=== PATIENT | male | born 1995 | race Caucasian/White ===

== ENCOUNTER 2025-02-10 15:14 | Emergency (ER) | payer BC, OTHER ==
[2025-02-10 15:36] VITALS: RESP 20
--- NOTE | 2025-02-10 15:58 | ED ---
Extremity Problem HPI - General Chief complaint: Extremity Injury, Lower Stated complaint: L leg pain Time Seen by Provider: 02/10/25 15:39 Source: patient, RN notes reviewed Mode of arrival: ambulatory Limitations: no limitations - History of Present Illness Initial comments: This is a 29-year-old male who presents to the emergency department for left leg pain. Patient states that it started about a week ago. He is unsure if he may have done something to injure it in baseball. States that it feels like a cramping sensation in the buttocks and upper thigh region in association with sciatica going down the whole leg. Denies any loss of bowel/bladder control or saddle anesthesia. He did go to urgent care 5 days ago and was given a prescription for steroids and Flexeril. However, states that he has not had any relief with this. He is struggling to ambulate as well. MD Complaint: extremity pain - Related Data Home Medications Medication Instructions Recorded Confirmed Cetirizine HCl [Zyrtec] 10 mg PO DAILY PRN 02/10/25 02/10/25 Cyclobenzaprine [Flexeril] 10 mg PO Q8H PRN 02/10/25 02/10/25 Previous Rx's Medication Instructions Recorded Ketorolac [Toradol] 10 mg PO Q6HR PRN #15 tab 02/10/25 Orphenadrine [Norflex] 100 mg PO Q12H PRN #30 tab 02/10/25 predniSONE 50 mg PO DAILY 5 Days #5 tab 02/10/25 Allergies Allergy/AdvReac Type Severity Reaction Status Date / Time No Known Allergies Allergy Verified 02/10/25 17:19 Review of Systems ROS Statement: Those systems with pertinent positive or pertinent negative responses have been documented in the HPI. ROS Other: All systems not noted in ROS Statement are negative. Past Medical History Past Medical History: No Reported History History of Any Multi-Drug Resistant Organisms: None Reported Past Surgical History: No Surgical Hx Reported, Orthopedic Surgery Past Psychological History: No Psychological Hx Reported Smoking Status: Never smoker Past Alcohol Use History: Rare Past Drug Use History: None Reported General Exam Limitations: no limitations General appearance: alert, in no apparent distress Head exam: Present: atraumatic, normocephalic, normal inspection Respiratory exam: Present: normal lung sounds bilaterally. Absent: respiratory distress, wheezes, rales, rhonchi, stridor Cardiovascular Exam: Present: regular rate, normal rhythm Extremities exam: Present: other (No localized tenderness, erythema, induration, or swelling of the left lower extremity.) Neurological exam: Present: alert, oriented X3, CN II-XII intact Psychiatric exam: Present: normal affect, normal mood Skin exam: Present: warm, dry, intact, normal color. Absent: rash Course Vital Signs 02/10/25 15:33 Temperature 97.9 F Pulse Rate 95 Respiratory 20 Rate Blood Pressure 140/89 O2 Sat by Pulse 95 Oximetry Medical Decision Making - Medical Decision Making This is a 29-year-old male who presents to the emergency department for left leg pain. Was pt. sent in by a medical professional or institution? @ -No Did you speak to anyone other than the patient for history? @ -No Did you review nursing and triage notes? @ -Yes, and I agree, it is accurate with regards to the patient's symptoms. Were old charts reviewed? @ -No Differential Diagnosis? @ -Differential Musculoskeletal Muscular strain, contusion, ligament sprain, fracture, arthritis, septic arthritis, bursitis, cellulitis, muscle spasm, nerve compression, DVT, arterial occlusion, herpes zoster, electrolyte abnormality, tumor.... This is not meant to be in all inclusive list EKG interpreted by me (3pts min.)? @ -Not obtained X-rays interpreted by me (1pt min.)? @ -Not obtained CT interpreted by me (1pt min.)? @ -CT scan of the pelvis and lumbar spine obtained. My interpretation identifies no acute fractures. U/S interpreted by me (1pt. min.)? @ -Not obtained What testing was considered but not performed? (CT, X-rays, U/S, labs)? Why? @ -None What meds were considered but not given? Why? @ -None Did you discuss the management of the patient with other professionals? @ -No Did you reconcile home meds? @ -No Was smoking cessation discussed for >3mins.? @ -No Was critical care preformed (if so, how long)? @ -No Were there social determinants of health that impacted care today? How? (Homelessness, low income, unemployed, alcoholism, drug addiction, transportation, low edu. Level, literacy, decrease access to med. care, senior care, rehab)? @ -No Was there de-escalation of care discussed even if they declined? (Discuss DNR or withdrawal of care, Hospice)? @ -No What co-morbidities impacted this encounter? (DM, HTN, Smoking, COPD, CAD, Cancer, CVA, Hep., AIDS, mental health diagnosis, sleep apnea, morbid obesity)? @ -None Was patient admitted / discharged? @ -Discharged. CT scan of the lumbar spine and pelvis obtained revealing L5-S1 disc herniation with abutment of the exiting left S1 nerve root resulting in mild to moderate spinal canal stenosis with mild to moderate left neural foraminal stenosis. Findings reviewed with the patient. He has no red flag signs/symptoms such as loss of bowel/bladder control or saddle anesthesia. He does report a history of disc herniation in this area and has followed up with Dr. Cifuentes in the past. However, states that he does not typically get symptoms to this severity with the disc herniation. Discussed that it may have worsened or become more prominent. There is also the possibility that he has an associated soft tissue injury that cannot be fully evaluated on the CT scan. Pain was well-controlled in the emergency department. Prednisone, Toradol, and Norflex prescribed for further management. However, I did advise he also follow back up with Dr. Cifuentes for reevaluation to discuss other treatment options as well as if additional imaging such as an MRI is warranted. Patient discharged home in stable condition. Case discussed with ED attending Dr. Hayes. Return precautions reviewed in depth, the patient is instructed to return to the emergency department with any new, worsening, or concerning symptoms. Patient verbalized understanding. Undiagnosed new problem with uncertain prognosis? @ -None Drug Therapy requiring intensive monitoring for toxicity (Heparin, Nitro, Insulin, Cardizem)? @ -None Were any procedures done? @ -None Diagnosis/symptom? @ -Lumbar disc herniation, lumbar spinal stenosis, lumbar strain Acute, or Chronic, or Acute on Chronic? @ -Acute Uncomplicated (without systemic symptoms) or Complicated (systemic symptoms)? @ -Uncomplicated Side effects of treatment? @ -None Exacerbation, Progression, or Severe Exacerbation] @ -Not applicable Poses a threat to life or bodily function? @ -Yes, the pain is limiting his ability to function to some extent - Radiology Data Radiology results: report reviewed, image reviewed Disposition Clinical Impression: Lumbar disc herniation, Lumbar spinal stenosis, Lumbar strain Disposition: HOME SELF-CARE Instructions (If sedation given, give patient instructions): Lumbar Disc Herniation (ED), Low Back Strain (ED), Lumbar Spinal Stenosis (ED), Lower Back Exercises (ED) Additional Instructions: Return to the emergency department with any new, worsening, or concerning symptoms. Take the prednisone daily for 5 days. Take the Toradol with Tylenol as needed for pain relief. If you choose to take the Toradol, do not take any other anti-inflammatories such as ibuprofen, take one or the other. Take the Norflex twice daily. However, be aware that this may make you drowsy. Do not take it with the Flexeril. Follow-up with Dr. Cifuentes as listed below. Let them know that you were seen in the emergency department for back pain and your disc herniation has likely worsened and is causing stenosis of your spinal canal. Prescriptions: Orphenadrine [Norflex] 100 mg PO Q12H PRN #30 tab PRN Reason: Pain predniSONE 50 mg PO DAILY 5 Days #5 tab Ketorolac [Toradol] 10 mg PO Q6HR PRN #15 tab PRN Reason: Pain Is patient prescribed a controlled substance at d/c from ED?: No Referrals: Lucas Francois DO [Primary Care Provider] - 1-2 days Makayla Cifuentes DO [Doctor of Osteopathic Medicine] - 1-2 days Time of Disposition: 17:25
[2025-02-10] MEDS: ORPHENADRINE 30 MG/ML 2 ML VIAL IVP STA (16:18)
[2025-02-10] MEDS: DEXAMETHASONE SOD PHOSPHATE 10 MG/ML 1 ML VIAL IVP STA (16:18)
[2025-02-10] MEDS: KETOROLAC 15 MG/ML 1 ML VIAL IVP STA (16:19)
--- NOTE | 2025-02-10 17:06 | CT ---
EXAMINATION TYPE: CT pelvis wo con CT DLP: 1094.8 mGycm, Automated exposure control for dose reduction was used. DATE OF EXAM: 02/10/2025 4:57 PM COMPARISON: None CLINICAL INDICATION:Male, 29 years old with history of Left lower back and buttocks pain; left lower back and hip pain TECHNIQUE: Standard CT of the pelvis without IV or oral contrast. Lack of IV or oral contrast limit s evaluation of solid and hollow organ viscera. Coronal and sagittal reformats were performed. FINDINGS: BLADDER: Moderately distended. No distinct wall thickening or surrounding inflammatory changes. REPRODUCTIVE: Unremarkable. BOWEL: No bowel wall thickening or stranding inflammatory changes. No evidence of bowel obstruction. PERITONEUM: No evidence of pneumoperitoneum or free fluid. VASCULATURE: No evidence of aortic aneurysm. MUSCULOSKELETAL: No acute osseous abnormalities. Both SI joints are intact. LYMPH NODES: No gross evidence for lymphadenopathy. SOFT TISSUE/ABDOMINAL WALL: Unremarkable IMPRESSION: No acute pelvic process. [facility], , 02/10/2025 5:03 PM
--- NOTE | 2025-02-10 17:11 | CT ---
EXAMINATION TYPE: CT lumbar spine wo con CT DLP: 1094.8 mGycm, Automated exposure control for dose reduction was used. DATE OF EXAM: 02/10/2025 4:57 PM COMPARISON: CT pelvis of the same date. CLINICAL INDICATION:Male, 29 years old with history of Left lower back and buttocks pain; PHH, left l ower back and hip pain, pain TECHNIQUE: Multiple axial images were obtained from the midportion of T11 through the sacroiliac sho nts. Soft tissue and bone windows in coronal and sagittal planes were obtained and reviewed. Contrast used: none. Oral contrast used: none. FINDINGS: Alignment: There are 5 lumbar type vertebral bodies within normal alignment. Bone: No evidence of fracture is identified. Discs: T12-L1: No spinal canal or neural foraminal stenosis is identified. L1-L2: No spinal canal or neural foraminal stenosis is identified. L2-L3: No spinal canal or neural foraminal stenosis is identified. L3-L4: No spinal canal or neural foraminal stenosis is identified. L4-L5: Broad-based disc bulge with minimal effacement of the anterior thecal sac. No significant spin al canal stenosis. No significant neuroforaminal stenosis. L5-S1: Left paracentral disc protrusion extending into the subarticular zone. Superimposed upon a bro ad-based disc bulge. There is effacement of the anterior left thecal sac. There is abutment of the ex iting left S1 nerve root. Mild to moderate spinal canal stenosis. Right neural foramen is patent. Mil d to moderate left neural foraminal stenosis. Other: None IMPRESSION: 1. No evidence for acute spinal fracture. 2. L5-S1 disc herniation with abutment of the exiting left S1 nerve root. Resultant mild to moderate spinal canal stenosis with mild to moderate left neural foraminal stenosis. Consider further evaluati on with MRI as clinically indicated. [facility], , 02/10/2025 5:08 PM
[2025-02-10] MEDS ORDERED: traMADol 50 MG STARTER PACK TAB BTL PO STA (17:23)
[2025-02-10 18:00] VITALS: BP 111/76; PULSE 77; TEMP 98
== END 2025-02-10 18:02 | disposition home or self-care (01) ==
LOC: EC 15:14
DX: S39.012A Strain of muscle, fascia and tendon of lower back, initial encounter (principal); M51.369 Other intervertebral disc degeneration, lumbar region without mention of lumbar back pain or lower extremity pain; M48.061 Spinal stenosis, lumbar region without neurogenic claudication; X58.XXXA Exposure to other specified factors, initial encounter; Y93.64 Activity, baseball
CPT/HCPCS: 72192; 72131; 99283; 96374; 96375 ×2; J1100; J2360; J1885